=== PATIENT | female | born 1955 | race American Indian/Alaskan Native ===

== ENCOUNTER 2024-03-19 21:05 | Emergency (ER) | payer MEDICARE ==
[~2024-03-19] VITALS: Ht 162.6 cm; Wt 99.1 kg
[2024-03-19 21:11] VITALS: O2SAT 98
[2024-03-19 21:13] VITALS: BP 155/102; PULSE 103; RESP 19; TEMP 99.1
[2024-03-19] MEDS ORDERED: ONDANSETRON HCL 4MG/2ML INJ IV STA (21:54)
[2024-03-19] MEDS ORDERED: SODIUM CHLORIDE 0.9% 1,000 ML IV ONE (22:00)
[2024-03-19 22:39] LABS: HEMATOCRIT. 40.4 % (36.0-48.0); HEMOGLOBIN. 13.7 g/dL (12.0-16.0); MEAN CORPUSCULAR HEMOGLOBIN 31.7 pg (28.0-32.0); MEAN CORPUSCULAR HGB CONC 33.8 g/dL (31.0-37.0); MEAN CORPUSCULAR VOLUME 93.7 fL (81.0-99.0); MEAN PLATELET VOLUME 6.7 fl (7.4-10.4); PLATELET 208 x1000/uL (130-400); RED BLOOD CELL COUNT 4.31 mill/uL (4.2-5.4); RED CELL DISTRIBUTION WIDTH 12.5 % (11.6-14.6)
[2024-03-19 22:40] LABS: DIFFERENTIAL COMMENT 1
[2024-03-19 22:45] LABS: CHLORIDE 109 mEq/L (98-107); POTASSIUM 3.6 mEq/L (3.5-5.1); SODIUM 138 mEq/L (136-145)
[2024-03-19 22:46] LABS: CALCIUM 9.9 mg/dL (8.7-10.4); CARBON DIOXIDE 20 mEq/L (21-32)
[2024-03-19 22:51] LABS: CREATININE 0.8 mg/dL (0.6-1.0); GLUCOSE 198 mg/dL (70-105); UREA NITROGEN BLOOD 16 mg/dL (9-23)
[2024-03-19 22:53] LABS: ALANINE AMINOTRANSFERASE 28 IU/L (10-49); ALBUMIN 4.7 g/dL (3.2-4.8); ASPARTATE AMINOTRANSFERASE 33 IU/L (<34); ATYPICAL LYMPHOCYTES 1; BILIRUBIN DIRECT 0.3 mg/dL (<=3.0); PROTEIN TOTAL 7.9 g/dL (6.0-8.3)
[2024-03-19 22:54] LABS: PLATELET ESTIMATE NORMAL; TEAR DROP CELLS 2+; TOXIC VACUOLATION 1+
[2024-03-20] MEDS ORDERED: ONDANSETRON HCL 4MG/2ML INJ IV NR (00:30)
== END 2024-03-20 05:27 | disposition home or self-care (01) ==
LOC: ER 21:05
DX: R19.7 Diarrhea, unspecified (principal); I10 Essential (primary) hypertension; Z86.59 Personal history of other mental and behavioral disorders
CPT/HCPCS: 99283; 80076; 80048; 83690; 85025; 36415; J7030